=== PATIENT | female | born 1955 | race Caucasian/White ===

== ENCOUNTER 2024-01-24 18:34 | Emergency (ER) | payer MEDICARE ==
[~2024-01-24] VITALS: Ht 160 cm; Wt 99.3 kg
[2024-01-24] MEDS ORDERED: CEFDINIR300 MG PO (19:10)
[2024-01-24] MEDS ORDERED: BENZONATATE100 MG PO (19:10)
[2024-01-24] MEDS: ACETAMINOPHEN 325 MG TAB PO ONE (19:15)
[2024-01-24 19:29] VITALS: PULSE 90; RESP 16; TEMP 99.1; O2SAT 99
[2024-01-24] MEDS ORDERED: LOSARTAN POTASS25 MG PO (19:32)
[2024-01-24] MEDS ORDERED: MELOXICAM15 MG (19:32)
== END 2024-01-24 19:29 | disposition home or self-care (01) ==
LOC: FSED 18:41
DX: R05.9 Cough, unspecified (principal); H66.92 Otitis media, unspecified, left ear; B34.9 Viral infection, unspecified; R30.0 Dysuria
CPT/HCPCS: 99283